=== PATIENT | male | born 1965 | race Caucasian/White ===

== ENCOUNTER 2024-04-24 05:26 | Observation (INO) ==
--- NOTE | 2024-04-18 09:26 | Anesthesiology Consultation ---
Date of Service April 18, 2024 Assessment & Plan (1) Encounter for pre-operative examination: - Check BSG DOS - Infectious disease screening: Per assessment on 04/18/24- No known recent infectious disease contacts or current infectious disease symptoms. - Semaglutide instructions: Patient informed by PAT to stop 7 days prior to surgery- voiced understanding. DOS 04/24/24. Advised last dose to be 04/15/24. Chart Review Chart Review: Acceptable Risk for Surgery and Patient seen in Pre Admission Testing Teaching & Discussion Pre-Anesthesia Teaching/Discussion Notes: Instructed NPO after midnight before surgery,except medications with 15 cc of water. Medication instructions pr ovided according to the PAT guidelines. History Surgery Operation Date: 04/24/24 10:35 Proposed Procedures p C4-C5, C5-C6 Cervical Artifical Disc Arthroplasty - Ross Lowry MD Height/Weight Height: 6 ft 2 in Weight: 136.9 kg Allergies Allergy/AdvReac Type Severity Reaction Status Date / Time No Known Allergies Allergy Unknown Verified 04/11/24 10:24 Medications Home Medications Medication Instructions Recorded Confirmed Last Taken diclofenac sodium 75 mg 75 mg PO BID PRN pain #30 tabs 02/10/24 04/11/24 Unknown tablet,delayed release atorvastatin 40 mg tablet 40 mg PO HS 04/11/24 04/11/24 Unknown baclofen 10 mg tablet 10 mg PO BID PRN muscle spasms 04/11/24 04/11/24 Unknown cholecalciferol (vitamin D3) 25 25 mcg PO BID 04/11/24 04/11/24 Unknown mcg (1,000 unit) tablet (Vitamin D3) insulin glargine 100 unit/mL (3 30 unit subcut HS 04/11/24 04/11/24 Unknown mL) subcutaneous pen (Lantus Solostar U-100 Insulin) lisinopril 2.5 mg tablet 2.5 mg PO HS 04/11/24 04/11/24 Unknown meloxicam 15 mg tablet 15 mg PO DAILY PRN Pain 04/11/24 04/11/24 Unknown milk thistle 500 mg capsule 1,000 mg PO BID 04/11/24 04/11/24 Unknown multivitamin 1 tab PO DAILY 04/11/24 04/11/24 Unknown pantoprazole 40 mg tablet,delayed 40 mg PO QAM 04/11/24 04/11/24 Unknown release semaglutide 2 mg/dose (8 mg/3 mL) 2 mg subcut WK 04/11/24 04/11/24 04/08/24 subcutaneous pen injector (Ozempic) venlafaxine 150 mg 150 mg PO BID 04/11/24 04/11/24 Unknown capsule,extended release 24 hr Past Medical History Medical History Cervical disc disorder at C4-C5 level with radiculopathy Cervical herniated disc Cervical radiculopathy chronic - left hand Chronic back pain Chronic neck pain Cirrhosis Follows with [facility] Gastro in [place] Depression controlled and stable Diabetes mellitus, type 2 IDDM Fatty liver non-alcoholic GERD (gastroesophageal reflux disease) History of COVID-19 2019: loss of taste and smell > resolved History of kidney stones Hx of colonic polyps "benign" Hyperlipidemia Hypertension Impingement of left shoulder Follows with [facility] Left shoulder pain Post concussion syndrome s/p fall 05/2023, Resiual Mild memory loss from the incident and occasional dizziness/headaches- at baseline Followed with neurology (Dr. [place] Garrido) Sleep apnea CPAP Tendonitis of left rotator cuff Follows with [facility] Exercise / Class Metabolic Activity II 4-5 Yardwork/Stairs/Walk up hill (one FS: No CP, no SOB) Past Family History Family History Other No family history of adverse response to anesthesia Past Surgical History Surgical History History of cholecystectomy History of colonoscopy Summer 2022 History of esophagogastroduodenoscopy (EGD) Summer 2022 History of lithotripsy Laser lithotripsy (several times) History of liver biopsy History of total knee replacement (2012) Left S/P epidural steroid injection Cervical epidural steroid/UOC - Dr Dillard (2023) Past Anesthesia History No Hx of Anesthesia Complications and No Family Hx of Anesthesia Complications History of PONV No Hx of PONV and No Hx of Motion Sickness Social History Smoking Status: Never smoker Do You Dip or Chew Tobacco: Yes (1 can/week (Advised on policy)) Hx Alcohol Use: Yes Alcohol type: beer alcohol intake frequency: a few times a week Hx Substance Use: No substance use type: does not use Review of Systems Patient denies chest pain, shortness of breath, dyspnea on exertion, fever, chills, cough, wheezing, palpitations. Physical Exam Vital Signs BP 151/75 P 72 TEMP 98.1 SP02 95%RA RESP 16 Physical Full cervical extension range of motion. Full TMJ range of motion. TMD 3 finger breaths (difficult to palpate) Mallampati Score III Dentition: missing molars, + cap Lungs: clear throughout to auscultation Cardiac: regular rate and rhythm, no murmurs noted, distant heart sounds Spine: normal Carotid arteries: negative bruit Extremities: no LE edema Short, thick neck Lab Results Anesthesia Preop Results Results Anesthesia Widget: WBC 7.34 K/ul (4.8-10.8) 04/18/24 Hgb 16.9 g/dl (14.0-18.0) 04/18/24 Hct 48.3 % (42.0-52.0) 04/18/24 Plt 206 K/uL (130-400) 04/18/24 Na 136 mmol/L (136-145) 04/18/24 K 4.4 mmol/L (3.5-5.1) 04/18/24 Cl 102 mmol/L (98-107) 04/18/24 CO2 28 mmol/L (21-32) 04/18/24 BUN 13 mg/dl (6-23) 04/18/24 Creat 0.93 mg/dl (0.6-1.4) 04/18/24 Glucose Level 242 mg/dl (70-99(Fasting)) H 04/18/24 PT 10.6 Seconds (9.0-12.0) 04/18/24 PTT 27 Seconds (21-31) 04/18/24 INR 1.0 (0.9-1.1) 04/18/24 HA1c 8.1 % (4.5-5.6) H 04/18/24 Blood Type O Positive 04/18/24 Antibody Screen NEGATIVE 04/18/24 Testing Laboratory Results Surgeon's office made aware of elevated A1C* 02/13/24 ALK PHOS 94 AST 34 ALT 56 Total bili 0.7 Electrocardiogram Date: 04/18/24 NSR at 72bpm. NS TWA. 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 Chest X-Ray Date: 04/18/24 FINDINGS: Lung volumes are normal. Lungs are clear. There is no pneumothorax or pleural effusion. Cardiac size is normal. Mediastinal contours are normal. There is no evidence for pulmonary edema. IMPRESSION: No acute cardiopulmonary findings. Other Testing US Abdomen Date: 12/29/23 Overall appearance of the liver suggests cirrhosis, not significantly changed however the liver is at the upper limits of normal in size.
[2024-04-24] MEDS: SODIUM CHLORIDE 0.9% 1,000 ML IV SCH (06:00)
[2024-04-24] MEDS: GABAPENTIN 600 MG DOSE PO SCH (06:05)
[2024-04-24] MEDS: ACETAMINOPHEN 500 MG TAB PO SCH (06:05)
[2024-04-24] MEDS: LR 15ML/HR IV SCH (06:06)
[2024-04-24] MEDS: LR 60ML/HR IV SCH (06:06)
[2024-04-24] MEDS ORDERED: GLYCOPYRROLATE 0.2 MG/ML VIAL ONE (06:40)
[2024-04-24] MEDS ORDERED: MIDAZOLAM HCL 1 MG/ML 2ML VIAL ONE (06:40)
[2024-04-24] MEDS ORDERED: PROPOFOL IV EMULSION 10 MG/ML 20 ML VIAL IV ONE (06:40)
[2024-04-24] MEDS ORDERED: ROCURONIUM BROMIDE 10 MG/ML 5 ML VIAL IV ONE ×3 (06:40→12:07)
[2024-04-24] MEDS ORDERED: fentaNYL citrate PF 100 MCG/2 ML VIAL ONE ×5 (06:40→11:59)
[2024-04-24] MEDS ORDERED: ONDANSETRON INJ 2 MG/ML 2 ML VIAL ONE (06:40)
[2024-04-24] MEDS ORDERED: LIDOCAINE 2% 2 ML VIAL/AMP(20MG/ML) INFIL ONE (06:40)
[2024-04-24] MEDS ORDERED: DEXAMETHASONE SOD INJ 4 MG/ML VIAL ONE (06:40)
[2024-04-24] MEDS ORDERED: SUGAMMADEX SODIUM 200 MG/2 ML VIAL IV ONE (06:44)
[2024-04-24] MEDS ORDERED: KETAMINE HCL 10MG/ML SYR ONE (06:46)
[2024-04-24] MEDS ORDERED: DROPERIDOL 5 MG/2 ML VIAL IV PRN (07:09)
[2024-04-24] MEDS ORDERED: PROMETHAZINE HCL 6.25 MG in SODIUM CHLORIDE 0.9% 50 ML IV PRN (07:09)
[2024-04-24] MEDS ORDERED: ePHEDrine sulfate 50 MG/ML AMP IV PRN (07:09)
[2024-04-24] MEDS ORDERED: ATROPINE SULFATE 0.1 MG/ML 10ML SYR IV PRN (07:09)
--- NOTE | 2024-04-24 07:16 | History & Physical Bridge Note ---
Date of Service April 24, 2024 History & Physical Bridge Note I have examined the patient, reviewed the History & Physical and in the interval since the performance of the History & Physical I have noted the following changes of clinical significance: no changes noted
[2024-04-24] MEDS: ceFAZolin 3000MG 3,000 MG/72.5 ML BAG IV SCH (08:12)
[2024-04-24] MEDS ORDERED: LABETALOL HCL IV 5 MG/ML 20ML IV ONE ×2 (12:10)
[2024-04-24] MEDS: ceFAZolin 2000MG 2,000 MG/15 ML SYR IV ONE (12:12)
[2024-04-24] MEDS ORDERED: ceFAZolin 330 MG/ML 1 GM VIAL ONE (12:23)
[2024-04-24] MEDS: FLOSEAL HEMOSTATIC MATRIX 10ML TOP ONE (13:13)
[2024-04-24] MEDS: VANCOMYCIN HCL 1000MG/20ML VIAL ONE (13:13)
[2024-04-24] MEDS: GELATIN SPONGE 12-7MM ONE (13:13)
[2024-04-24] MEDS: THROMBIN 5000 UNITS KIT ONE (13:13)
[2024-04-24] MEDS ORDERED: HYDROmorphone INJ 2 MG/ML SYR/VIAL ONE (13:18)
[2024-04-24] MEDS ORDERED: METOCLOPRAMIDE HCL INJ 5 MG/ML 2 ML VIAL IV PRN (13:36)
[2024-04-24] MEDS ORDERED: SOD PHOSPHATE/SOD BIPHOSPHATE ENEMA 132 ML BTL PR PRN (13:36)
[2024-04-24] MEDS ORDERED: hydrOXYzine HCl 25 MG TAB PO PRN (13:36)
[2024-04-24] MEDS ORDERED: PROMETHAZINE 12.5 MG/50.5 ML BAG IV PRN (13:36)
[2024-04-24] MEDS ORDERED: ONDANSETRON 4 MG OD TAB PO PRN (13:36)
[2024-04-24] MEDS ORDERED: ACETAMINOPHEN 500 MG TAB PO PRN (13:36)
[2024-04-24] MEDS ORDERED: FAMOTIDINE 20 MG TAB PO PRN (13:36)
[2024-04-24] MEDS ORDERED: ALUMINUM/MAGNESIUM SUSP 30 ML UDC PO PRN (13:36)
[2024-04-24] MEDS ORDERED: ONDANSETRON INJ 2 MG/ML 2 ML VIAL IV PRN (13:36)
[2024-04-24] MEDS ORDERED: MAGNESIUM HYDROXIDE SUSP 30 ML UDC PO PRN (13:36)
[2024-04-24] MEDS ORDERED: RACEPINEPHRINE 2.25% NEBU SOLN 0.5 ML VIAL INH PRN (13:36)
[2024-04-24] MEDS ORDERED: bisacodyL 10 MG SUPP PR PRN (13:36)
[2024-04-24] MEDS ORDERED: NALOXONE HCL 0.4 MG/1 ML VIAL/CARP IV PRN (13:36)
[2024-04-24] MEDS ORDERED: DO NOT ADMINISTER PNEUMOCOCCAL VACCINE PRN (13:36)
[2024-04-24] MEDS ORDERED: DO NOT ADMINISTER FLU VACCINE PRN (13:36)
[2024-04-24] MEDS ORDERED: LORazepam 2 MG/1 ML VIAL IV PRN (13:36)
[2024-04-24] MEDS ORDERED: diphenhydrAMINE Capsule 25 MG CAP PO PRN (13:36)
[2024-04-24] MEDS ORDERED: LORazepam 0.5 MG TAB PO PRN (13:36)
[2024-04-24] MEDS ORDERED: dexAMETHasone 8 MG in SYRINGE 0 ML IV PRN (13:36)
[2024-04-24] MEDS ORDERED: ACETAMINOPHEN 1,000 MG/100 ML VIAL IV PRN (13:36)
--- NOTE | 2024-04-24 13:36 | Post Operative Brief Note ---
PG Immediate Post Op with CF Date of Surgery April 24, 2024 Pre & Post Diagnosis Operation Date: 04/24/24 07:15 Pre-Op Diagnosis: Cervical Disc Disorder at C4-C5 with Radiculopathy, Cervical Disc Disorder at C5-C6 with Radiculopathy, Cervical Radiculopathy, Neck pain left side. Post-Op Diagnosis: Cervical Disc Disorder at C4-C5 with Radiculopathy, Cervical Disc Disorder at C5-C6 with Radiculopathy, Cervical Radiculopathy, Neck pain left side. I identified the patient and participated in the time-out.: Yes Procedure Operation Date: 04/24/24 07:15 Actual Procedures p C4-C5, C5-C6 Cervical Artifical Disc Arthroplasty - Ross Lowry MD Surgeon Ross Lowry MD Bead Forming Machine Operator none Estimated Blood Loss 20 Findings Consistent with Post-Op Diagnosis Specimens Specimen Description: no specimen per surgeon Drains Lundy Catheter
[2024-04-24] MEDS ORDERED: PHARMACY GLYCEMIC MGMT CONSULT PRN (13:42)
--- NOTE | 2024-04-24 14:12 | Fluoroscopy Report ---
FL cervical 2-3V CLINICAL HISTORY: C4-C5, C5-C6 CERVICAL ARTIFICAL DISC TECHNIQUE: 12 views were obtained with the C-arm in the OR with the above procedure. Total fluoroscop y time was 136.0 seconds. Radiation dose was 64.59 mGy. Comparison: None available at the time of this dictation. FINDINGS/IMPRESSION: Intraoperative images were obtained of C4-C6 discectomy and prosthesis placement . Please correlate with intraoperative fluoroscopy and operative report. ACT 112: Negative or not required by law. Electronically signed by: Eldon Escalante M.D. 04/24/2024 2:11 PM
[2024-04-24] MEDS: HYDROmorphone INJ 2 MG/ML SYR/VIAL IV PRN (14:13)
--- NOTE | 2024-04-24 14:17 | Pharmacy Report ---
Pharmacy Glycemic Short Note 2 - Date of Service April 24, 2024 - Glycemic Short BSG Results (Last 24 hours): 04/24/24 04/24/24 05:52 13:43 POC Glucose 176 H 248 H OUTPATIENT ANTIDIABETIC REGIMEN: * Lantus 30 units HS * A1c 8.1% 04/18/24 ASSESSMENT: * Patient admitted POD #0, received 8 mg IV dexamethasone * Post op BSG elevated at 248 mg/dL- will begin parameters similar to weight based stress of 3 (adjusted body weight) * Schedule basal to be given with dinner, then HS ongoing the following night. will utilize ~.26 units/kg TBW (this is similar to adjusted body weight stress of 2 dosing; ~17% increase from home dose * Overnight checks PLAN FOR INPATIENT GLYCEMIC CONTROL: * Hold outpatient oral diabetes medications * Basal insulin * Lantus 35 units SQ x1, reassess dosing tomorrow * Bolus insulin * NovoLog per scale ACHS or Q6hrs while NPO * Goal Range: Low 110 mg/dL - High 140 mg/dL * Correction Factor: 15 mg/dL/unit * Nutritional / Prandial insulin per carb ratio of 1 unit per 6 grams CHO consumed
--- NOTE | 2024-04-24 15:14 | Anesthesiology Progress Note ---
Date of Service April 24, 2024 Anesthesia Post Procedure Vital Signs Vital Signs: Temp Pulse Pulse Resp BP Pulse Ox O2 Del Method 04/24/24 15:01 36.7 C 90 18 101/65 90 Nasal Cannula 04/24/24 14:45 37.0 C 86 12 108/60 94 Nasal Cannula 04/24/24 14:35 89 12 126/60 93 Nasal Cannula 04/24/24 14:25 87 10 L 127/69 93 Nasal Cannula 04/24/24 14:15 94 H 18 139/74 92 Room Air 04/24/24 14:05 88 18 126/70 95 Oxymask 04/24/24 13:55 89 18 117/71 96 Oxymask 04/24/24 13:45 85 14 126/68 97 Oxymask 04/24/24 13:39 36.1 C L 88 14 124/65 99 Oxymask 04/24/24 05:56 36.7 C 75 20 154/103 H 97 Room Air O2 Flow Rate 04/24/24 15:01 2 04/24/24 14:45 2 04/24/24 14:35 2 04/24/24 14:25 2 04/24/24 14:15 04/24/24 14:05 10 04/24/24 13:55 10 04/24/24 13:45 10 04/24/24 13:39 10 04/24/24 05:56 Pain Intensity Left Neck: Pain Intensity: 3 Transfer of Care Handoff Completed per policy Notes Mental Status: alert / awake / arousable and participated in evaluation Nausea / Vomiting: adequately controlled Pain: adequately controlled Airway Patency, RR, SpO2: stable & adequate BP & HR: stable & adequate Hydration State: stable & adequate Anesthetic Complications: no major complications apparent and Pt Satisfied with anesthetic care
[2024-04-24] MEDS: INSULIN ASPART PER UNIT CHARGE SC ONE (15:39)
--- NOTE | 2024-04-24 15:40 | Hospitalist Consultation ---
Date of Consultation April 24, 2024 Assessment & Plan (1) Cervical disc disorder at C4-C5 level with radiculopathy: S/p C4-C5, C5-C6 cervical artificial disc arthroplasty - Pain management, VTE PPx, and bowel regimen per surgical team - Pre-op H&H stable, renal function stable, EKG NSR - CBC + CMP am (2) Cervical disc disorder at C5-C6 level with radiculopathy: As above, see #1 (3) Diabetes mellitus, type 2: H/o DMT2 - At home regimen Ozempic weekly (HOLD while inpatient), Lantus 30U nightly - Most recent A1C (04/2024) @ 8.1% - SSI with target BSG range 110-140mg/dL, CF 25, carb ratio 10 - T2DM diet - BSG ACHS - Adjust regimen as needed - Pharm glycemic management consult placed (4) Tobacco chew use: Tobacco use, > 50 years - Recommended cessation - Gum + patch ordered Plan HTN- lisinopril 2.5 mg HLD- atorvastatin 40 mg Depression- stable; venlafaxine GERD- pantoprazole 40mg Cirrhosis/VIVAR- follows with [facility] gastro in [place]; Milk thistle 1000 mg twice daily Sleep apnea- CPAP brought from home; use nightly Dispo: Admit Diet: T2DM VTE Prophylaxis: Per surgical team Code: Full Supervising Physician Co-Signing Physician Notes Patient seen and examined, chart reviewed, case discussed with Juanis Pate PA-C and I agree with the assessment and plan as above except as otherwise noted above. All labs and images reviewed Seen at the bedside on evening reassessment. No questions or concerns. Walking to the bathroom independently. Pain adequately controlled. Breathing comfortably on RA. Agree w/ management of chronic medical issues as noted above History of Present Illness Reason for Consultation: Medical management Requesting Physician: Ross Lowry MD Attending Physician: Ross Lowry MD History of Present Illness 58-year-old male being evaluated postoperatively; s/p cervical artificial disc arthroplasty. PMHx HTN, HLD, sleep apnea (CPAP), depression, T2DM, GERD, cirrhosis, and multiple musculoskeletal conditions. Patient resting in bed at time of visit. States overall his pain is well-controlled, he is just having what he describes as muscle soreness in his posterior neck. Additionally complaining of a slightly sore throat, but states that the pain resolves temporarily when swallowing water. Denying chest pain, shortness of breath, palpitations, abdominal pain, N/V, numbness/tingling, or headache. Please see Dr. Motta's attestation for adjustments/additions to treatment plan. Allergies Allergy/AdvReac Type Severity Reaction Status Date / Time No Known Allergies Allergy Unknown Verified 04/24/24 05:59 Home Medications Medication Instructions Recorded Confirmed Type diclofenac sodium 75 mg 75 mg PO BID PRN pain #30 tabs 02/10/24 04/24/24 Rx tablet,delayed release atorvastatin 40 mg tablet 40 mg PO HS 04/11/24 04/24/24 History baclofen 10 mg tablet 10 mg PO BID PRN muscle spasms 04/11/24 04/24/24 History cholecalciferol (vitamin D3) 25 25 mcg PO BID 04/11/24 04/24/24 History mcg (1,000 unit) tablet (Vitamin D3) insulin glargine 100 unit/mL (3 30 unit subcut HS 04/11/24 04/24/24 History mL) subcutaneous pen (Lantus Solostar U-100 Insulin) lisinopril 2.5 mg tablet 2.5 mg PO HS 04/11/24 04/24/24 History milk thistle 500 mg capsule 1,000 mg PO BID 04/11/24 04/24/24 History multivitamin 1 tab PO DAILY 04/11/24 04/24/24 History pantoprazole 40 mg tablet,delayed 40 mg PO QAM 04/11/24 04/24/24 History release semaglutide 2 mg/dose (8 mg/3 mL) 2 mg subcut WK 04/11/24 04/24/24 History subcutaneous pen injector (Ozempic) venlafaxine 150 mg 300 mg PO DAILY 04/11/24 04/24/24 History capsule,extended release 24 hr oxycodone-acetaminophen 5 mg-325 1 tab PO Q6H PRN Pain #18 tabs 04/25/24 Rx mg tablet (Percocet) Patient History Medical History History of COVID-2019: loss of taste and smell > resolved Tendonitis of left rotator cuff Follows with [facility] Impingement of left shoulder Follows with [facility] Post concussion syndrome s/p fall 05/2023, Resiual Mild memory loss from the incident and occasional dizziness/headaches- at baseline Followed with neurology (Dr. [place] Garrido) Cervical herniated disc Left shoulder pain Chronic neck pain Chronic back pain History of kidney stones Hx of colonic polyps "benign" Fatty liver non-alcoholic Cirrhosis Follows with [facility] Gastro in [place] GERD (gastroesophageal reflux disease) Diabetes mellitus, type 2 IDDM Depression controlled and stable Cervical radiculopathy chronic - left hand Sleep apnea CPAP Hyperlipidemia Hypertension Surgical History History of total knee replacement (2012) Left S/P epidural steroid injection Cervical epidural steroid/UOC - Dr Dillard (2023) History of lithotripsy Laser lithotripsy (several times) History of colonoscopy Summer 2022 History of liver biopsy History of cholecystectomy History of esophagogastroduodenoscopy (EGD) Summer 2022 Family History Other No family history of adverse response to anesthesia Social History Smoking Status: Never smoker Tobacco Type: Smokeless Tobacco (Dip or Chew) Second Hand Exposure: No; Do You Dip or Chew Tobacco: Yes (1 can/week (Advised on policy)); Hx Alcohol Use: Yes Alcohol type: beer Hx Substance Use: No Preferred Language: Malay Communication Ability: Effective Patient Service Coordinator Required: No Beliefs That Will Affect Care: None Current Living Situation: Spouse Feels Safe at Home: Yes Assistive Devices: CPAP Review of Systems Review of Systems: All systems reviewed & are unremarkable except as noted in Subjective Physical Exam Physical Exam: General: No acute distress Skin: Warm and dry, without rashes or lesions Head: Normocephalic, atraumatic Eyes: PERRL, conjunctivae clear, sclera non-icteric ENT: External ear and ear canal without swelling; nose atraumatic; good dentition, oropharynx slightly dry Neck: Supple, no LAD Cardio: RRR, no M/G/R, S1 and S2 normal Resp: No respiratory distress, Lungs CTA in all lobes bilaterally, no wheezes, rales, or rhonchi; On 2L O2 via NC (none at baseline) Abdomen: Soft, symmetric, nontender; no distention; No masses or hepatosplenomegaly; Bowel sounds normoactive MSK: No deformities, full ROM throughout; pulses palpable and equal; no edema. Neuro: Awake, alert; Sensation intact bilaterally; CN intact Psych: Appropriate mood and affect; good judgement and insight. 3 family members present in room at time of visit. Results & Data Results & Data Vital Signs (Past 12 Hours) Vital Signs Temp Pulse Pulse Resp BP Pulse Ox O2 Del Method 04/24/24 15:23 Nasal Cannula 04/24/24 15:01 36.7 C 90 18 101/65 90 Nasal Cannula 04/24/24 14:45 37.0 C 86 12 108/60 94 Nasal Cannula 04/24/24 14:35 89 12 126/60 93 Nasal Cannula 04/24/24 14:25 87 10 L 127/69 93 Nasal Cannula 04/24/24 14:15 94 H 18 139/74 92 Room Air 04/24/24 14:05 88 18 126/70 95 Oxymask 04/24/24 13:55 89 18 117/71 96 Oxymask 04/24/24 13:45 85 14 126/68 97 Oxymask 04/24/24 13:39 36.1 C L 88 14 124/65 99 Oxymask 04/24/24 05:56 36.7 C 75 20 154/103 H 97 Room Air O2 Flow Rate 04/24/24 15:23 2 04/24/24 15:01 2 04/24/24 14:45 2 04/24/24 14:35 2 04/24/24 14:25 2 04/24/24 14:15 04/24/24 14:05 10 04/24/24 13:55 10 04/24/24 13:45 10 04/24/24 13:39 10 04/24/24 05:56 PG Care Time/CCT Total # of Minutes Spent Total Time Spent with Patient: Total time spent is greater than 50% in coordination of care (as documented) at patient's floor/unit and/or counseling patient: Coding Level of Care Code 67364 IN/OBS CONSULT LVL 3,45M Diagnoses Cervical disc disorder at C4-C5 level with radiculopathy M50.121 Cervical disc disorder at C5-C6 level with radiculopathy M50.122 Diabetes mellitus, type 2 E11.9 Tobacco chew use Z72.0 Time Spent (min) 40
[2024-04-24] MEDS ORDERED: NICOTINE POLACRILEX 2 MG GUM MT PRN (16:14)
[2024-04-24] MEDS: NICOTINE 21 MG/24 HR TDSY TD SCH (16:41)
[2024-04-24] MEDS: INSULIN ASPART PER UNIT CHARGE SC SCH (16:56)
[2024-04-24] MEDS: LANTUS PER UNIT CHARGE SC SCH (16:56)
[2024-04-24] MEDS: HYDROmorphone INJ 0.5 MG/0.5 ML SYR IV PRN (17:46)
[2024-04-24] MEDS: ceFAZolin 2000MG 2,000 MG/15 ML SYR IV SCH (20:27)
[2024-04-24] MEDS: lisinopril 2.5 MG TAB PO SCH (20:27)
[2024-04-24] MEDS: DOCUSATE SODIUM/SENNA 50/8.6MG TAB PO SCH (20:27)
[2024-04-24] MEDS ORDERED: NON-FORMULARY MEDICATION (Insulin Glargine [Lantus Solostar U-100 Insulin] 100 unit/mL (3 SQ SCH (21:00)
[2024-04-24] MEDS: oxyCODONE/ACETAMINOPHEN 5mg/325mg TAB PO PRN (22:02)
[2024-04-25] MEDS: POLYETHYLENE (MIRALAX) 17 GM PACK PO SCH (06:25)
[2024-04-25 07:33] VITALS: RESP 16
[2024-04-25] MEDS: VENLAFAXINE HCL XR 150 MG CAPXR PO SCH (07:38)
[2024-04-25 07:51] LABS: Basophils # (auto) 0.02 K/uL (0.00-0.20); Basophils % (auto) 0.1 %; Eosinophils # (auto) 0.02 K/uL (0.00-0.50); Eosinophils % (auto) 0.1 %; Hematocrit (blood only) 47.1 % (42.0-52.0); Hemoglobin 16.2 g/dl (14.0-18.0); Immature Granulocytes # (auto) 0.05 K/uL (0.01-0.20); Immature Granulocytes % (auto) 0.3 %; Lymphocytes # (auto) 2.52 K/uL (1.20-3.40); Lymphocytes % (auto) 16.1 %; Mean Corpuscular Hemoglobin 31.3 pg (25.0-34.0); Mean Corpuscular Hgb Conc 34.4 g/dL (32.0-36.0); Mean Corpuscular Volume 90.9 fL (80.0-100.0); Mean Platelet Volume 10.3 fL (9.4-12.4); Monocytes # (auto) 1.29 K/uL (0.11-0.59); Monocytes % (auto) 8.3 %; Neutrophils # (auto) 11.72 K/uL (1.40-6.50); Neutrophils % (auto) 75.1 %; Platelet Count 205 K/uL (130-400); RDW Coefficient of Variation 11.9 % (11.5-14.5); RDW Standard Deviation 39.6 fL (36.4-46.3); Red Blood Count 5.18 M/uL (4.70-6.10); White Blood Count 15.62 K/ul (4.8-10.8)
[2024-04-25 07:54] VITALS: BP 130/68; PULSE 68; TEMP 97.7; O2SAT 95
--- NOTE | 2024-04-25 08:02 | Hospitalist Progress Note ---
Date of Service April 25, 2024 Assessment & Plan (1) Cervical disc disorder at C4-C5 level with radiculopathy: Plan: s/p C4-C5, C5-C6 Cervical Artifical Disc Arthroplasty with Dr Lowry 04/24 EBL 20cc - Pain management, VTE PPx, and bowel regimen per surgical team - Pre-op H&H stable, renal function stable, EKG NSR - CBC + CMP am 04/25 WBC elevation suspected 2nd to surgery/stress of surgery. Has remained afebrile. 95% on RA. Hgb stable 16.2 Chemistries stable, stable renal function. Lisinopril continued. BP 130/68 Pain control w/ Hydromorphone/Oxycodone being utilized, has utilized 1 dose Dilaudid this morning. Dispo per primary service -- planning for dc today Please call with any questions/concerns. (2) Cervical disc disorder at C5-C6 level with radiculopathy: Plan: As above, see #1 (3) Diabetes mellitus, type 2: Plan: H/o DMT2 - At home regimen Ozempic weekly (HOLD while inpatient), Lantus 30U nightly - Most recent A1C (04/2024) @ 8.1% - SSI with target BSG range 110-140mg/dL, CF 25, carb ratio 10 - T2DM diet - BSG ACHS - Adjust regimen as needed - Pharm glycemic management consult placed and managing while inpatient (4) Tobacco chew use: Plan: Tobacco use, > 50 years - Recommended cessation - Gum + patch ordered Cessation in f/u recommended Plan HTN- lisinopril 2.5 mg, BP stable HLD- atorvastatin 40 mg Depression- stable; venlafaxine GERD- pantoprazole 40mg Cirrhosis/VIVAR- follows with [facility] gastro in [place]; Milk thistle 1000 mg twice daily Sleep apnea- CPAP brought from home; use nightly Dispo: planning for dc today when family for ride Hospitalist service will sign off. Please call with questions/concerns. Admission and Anticipated Discharge Date Admission Date: April 24, 2024 Supervising Physician Co-Signing Physician Notes The patient was not seen by me. The chart was reviewed. Case discussed with JASON Samaniego. Agree with assessment and plan Subjective EVal this morning, ambulating the room. Tolerating diet. Arm symptoms improving, some numbness/tingling but improving. No CP/SOB, no abdominal pain, fever/chills. No lightheaded/dizziness reported. No stridor/significant swelling. Planning for dc when family here at 11. Questions/concerns addressed at this time. Physical Exam 2 Physical Exam: General: No acute distress, ambulating in the room, drinking coffee HEENT: head atraumatic, normocephalic, mmm, trachea midline Neck: no stridor, no wheezing, dressing c/d/i, minimal swelling, no drainage/redness Cardio: RRR, no M/G/R, S1 and S2 normal Resp: No respiratory distress, Lungs CTA in all lobes bilaterally, no wheezes, rales, or rhonchi, on room air Abdomen: Soft, symmetric, nontender; no distention; No masses or hepatosplenomegaly; Bowel sounds normoactive MSK: No deformities, full ROM throughout; pulses palpable and equal; no edema. Neuro: Awake, alert; Sensation intact bilaterally; CN intact Psych: Appropriate mood and affect; good judgement and insight. Results & Data Results & Data Vital Signs (Past 12 Hours) Vital Signs Temp Pulse Pulse Resp BP BP Pulse Ox 04/25/24 07:48 36.5 C 68 16 130/68 95 04/25/24 07:15 70 16 93 04/25/24 06:58 04/25/24 06:26 36.4 C L 70 18 124/78 97 04/25/24 04:39 70 18 95 04/25/24 04:30 36.6 C 74 18 120/77 96 04/25/24 02:26 36.5 C 76 16 126/78 96 04/25/24 00:30 36.5 C 76 16 121/75 96 04/24/24 23:22 76 18 95 04/24/24 22:27 36.5 C 79 16 135/78 96 04/24/24 21:00 04/24/24 20:17 36.5 C 80 18 170/78 H 96 O2 Del Method O2 Flow Rate 04/25/24 07:48 Room Air 04/25/24 07:15 Room Air 04/25/24 06:58 Room Air, CPAP 04/25/24 06:26 Nasal Cannula 2 04/25/24 04:39 Nasal Cannula 2 04/25/24 04:30 Nasal Cannula 2 04/25/24 02:26 Nasal Cannula 04/25/24 00:30 Nasal Cannula 2 04/24/24 23:22 Nasal Cannula 2 04/24/24 22:27 Nasal Cannula 2 04/24/24 21:00 Nasal Cannula 2 04/24/24 20:17 Room Air Laboratory Results 04/25/24 07:08 04/25/24 07:08 PG Care Time/CCT Total # of Minutes Spent Total Time Spent with Patient: Total time spent is greater than 50% in coordination of care (as documented) at patient's floor/unit and/or counseling patient: Coding Level of Care Code 68338 SUB INP/OBS CARE 06/09MIN Diagnoses Cervical disc disorder at C4-C5 level with radiculopathy M50.121 Cervical disc disorder at C5-C6 level with radiculopathy M50.122 Diabetes mellitus, type 2 E11.9 Tobacco chew use Z72.0
--- NOTE | 2024-04-25 08:14 | Orthopedic Progress Note ---
Date of Service April 25, 2024 Subjective Patient seen and examined, he notes that his preoperative arm symptoms are resolved, he has some neck ache, and some limited numbness and tingling in the radial 3 digits which is improving. No issues with swallowing Dressing unremarkable, no focal motor weakness. Impression/plan: Postop day 1 from anterior cervical decompression and artificial disc placement C4-5 C5-6 with improvement of preoperative symptoms. Discharge home today and follow-up in 2 to 3 weeks. Review of Systems All systems reviewed & are unremarkable except as noted in HPI & below. Physical Exam . Results & Data Results & Data Laboratory Results . Diagnostic Findings . PG Care Time/CCT Total # of Minutes Spent Total Time Spent with Patient: Total time spent is greater than 50% in coordination of care (as documented) at patient's floor/unit and/or counseling patient: Coding Level of Care Code 52478 Post Operative Follow-Up
[2024-04-25 08:37] LABS: Albumin Globulin Ratio 1.3 (0.9-2); Albumin Level 3.8 gm/dl (3.4-5.0); BUN Creatinine Ratio 17.9 (10-20); Creatinine Clr Calc Pharmacy 151.1 ml/min; Potassium 4.1 mmol/L (3.5-5.1); Total Protein 6.8 gm/dl (6.0-8.3)
--- NOTE | 2024-04-27 08:18 | Discharge Summary ---
Date of Service April 27, 2024 Admission HPI (Per Admitting) cervical radiclopathy Principal Diagnosis Same as "Discharge Diagnosis" noted below under Discharge Instructions. Discharge Exam . Discharge Data Consultations 04/24/24 13:36 Consult Hospitalist Routine Procedures Performed Operation Date: 04/24/24 07:15 Actual Procedures p C4-C5, C5-C6 Cervical Artifical Disc Arthroplasty - Ross Lowry MD Ordered Studies 04/24/24 07:15 FL cervical 2-3V Routine Hospital Course (1) Cervical disc disorder at C4-C5 level with radiculopathy: surgery (2) Cervical disc disorder at C5-C6 level with radiculopathy: PG Care Time/CCT Total # of Minutes Spent Total Time Spent with Patient: Total time spent is greater than 50% in coordination of care (as documented) at patient's floor/unit and/or counseling patient: Discharge Plan Discharge Items Patient Disposition: Home - Self-Care Reason For Visit: Cervical Disc Disorder at C4-C5 with Radiculopathy Discharge Diagnosis: cervical radiculopathy Activity: As commented below Lifting: No more than 10 pounds Bathing: May shower/bathe in 3 days Exercise/Sports: Wait until after follow-up appointment Weightbearing: Full weightbearing Non-emergency contact: Surgeon Call non-emergency contact if: your pain is worsening Follow-up/Referrals: Ross Lowry MD [Surgeon] - 05/18/24 3:10 pm PCP,NO [Physician] - Diet: Regular Addtl Attending Provider Instructions: May shower on 3rd day after surgery. You can wash the incision and surgical site with soap and water briefly and then blot dry with a clean towel/cloth. Cover with a new, sterile dry dressing. If unable to change your dressing, then leave hospital dressing intact and cover the area for showering. Do NOT soak incision. No strenuous activity, lifting, or exercise until further instructed. Use the Percocet prescription for pain relief, and if that prescription has run out, then switch to [id number] Tylenol as needed. Follow-up 2 to 3 weeks after surgery. Pending Studies at Discharge: No Stand-Alone Forms: [employer], Smoking Cessation Medications and DC Order Prescriptions: New oxycodone-acetaminophen [Percocet] 5-325 mg Tablet 1 tab PO Q6H PRN (Reason: Pain) Qty: 18 0RF Continued baclofen 10 mg Tablet 10 mg PO BID PRN (Reason: muscle spasms) multivitamin Tablet 1 tab PO DAILY atorvastatin 40 mg Tablet 40 mg PO HS milk thistle 500 mg Capsule 1,000 mg PO BID Rx Instructions: give with meal/snack venlafaxine 150 mg Capsule,Extended Release 24hr 300 mg PO DAILY pantoprazole 40 mg Tablet,Delayed Release (Dr/Ec) 40 mg PO QAM lisinopril 2.5 mg Tablet 2.5 mg PO HS cholecalciferol (vitamin D3) [Vitamin D3] 25 mcg (1,000 unit) Tablet 25 mcg PO BID insulin glargine [Lantus Solostar U-100 Insulin] 100 unit/mL (3 mL) Insulin Pen 30 unit SUBCUT HS Ozempic 2 mg/dose (8 mg/3 mL) Pen Injector 2 mg SUBCUT WK Held diclofenac sodium 75 mg tablet,delayed release (DR/EC) 75 mg PO BID PRN (Reason: pain) Qty: 30 1RF Hold Instructions: Resume on 04/27/24. September restart 2 days after discharge Rx Instructions: With meals Discontinued meloxicam 15 mg Tablet 15 mg PO DAILY PRN (Reason: Pain) Discharge Orders: Discharge Order (Routine); Ordered 04/25/24 Ordered By: Gab Mason/Other Patient Handouts: During Cervical Disk Surgery Admission Data Admit Date/Time: 04/24/24 13:36 Attending Provider: Ross Lowry Admit Provider: Ross Lowry Primary Care Provider: Lyric Parker Other Providers: Segundo Wilkins; Kylah Lopez; Colby Britton; Pepito Valle; Juanito Berg; Gab Jackman; Ca Escalante; Annamaria Cano; Isatu Yuan; Cathryn Hager; Caleb Samuels; Mirna Gleason; Juan Manuel Olvera; Colby Yin; Rogelio Matias; Ras Armas; Lynsey Spence; Anna Sharma; Anna Henderson; Crystal Marquis; Geri Elizalde; Daryl Pate; Hola Gonzalez; Naren Locke; Savage Motta; Symone Smart.; Charu Vieyra; Dilma Stallworth; Levi Emerson; Forrest Kelly; Pepito Fernando; Juanito Lockett; Adrianna Whyte; Yamile Cee; Tosin Giles; Ritchie Lynn; David Harman; Delvis Hernandez; Ricky Cannon; Thelma Stallings; Niall Bingham; Anna Jean Other Interventions: Discharge Summary Assessment (RN) Last Done: 04/25/24 09:44
--- NOTE | 2024-04-27 08:29 | Operative Report ---
PG Post Operative Report Pre & Post Diagnosis Operation Date: 04/24/24 07:15 Pre-Op Diagnosis: Cervical Disc Disorder at C4-C5 with Radiculopathy, Cervical Disc Disorder at C5-C6 with Radiculopathy, Cervical Radiculopathy, Neck pain left side. Post-Op Diagnosis: Cervical Disc Disorder at C4-C5 with Radiculopathy, Cervical Disc Disorder at C5-C6 with Radiculopathy, Cervical Radiculopathy, Neck pain left side. 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 C4-5 artificial disc replacement, Mobi-C [id number]. ([id number]) 2. C5-6 artificial disc replacement, Mobi-C [id number]. ([id number]) Patient was taken the operating room and after adequate anesthesia was positioned on the OSI flat top table in the supine position. A preprep was performed followed by then positioning the patient and bringing in fluoroscopy where I marked for the location of the incision followed by prep and drape. Procedure was started with a left-sided approach standard fashion, over the C4-5 and C5-6 area with careful dissection down in the standard fashion to the anterior aspect of the cervical spine. Radiographically confirmed the location followed by then mobilizing the soft tissues in this region. Distractor pins were then inserted under fluoroscopic control at C5-C6 followed by then setting retractors. Operative microscope was brought in and began the procedure with the anterior annulotomy. This was followed by then mobilizing the disc material from the disc space including the cartilage from the endplates. This process continued until a thorough discectomy has been performed, to the posterior aspect. The posterior spondylosis was then removed with a combination of high- speed bur followed by then curettes and Kerrison rongeurs with removing the spondylosis, the posterior annulus and posterior longitudinal ligament out to the uncinates on both sides with additional decompression. Once this was completed, trials were then obtained and inserted, selecting the size as listed. This device was obtained and tapped into position with fluroscopic control with excellent position on AP and lateral views. The distractor pin was removed and bone wax was applied to the insertion site then placed at C4 with fluoroscopy. Retractors were then reinserted for the C4-5 level followed by anterior anulotomy with mobilizing the disc material from the disc space including the cartilage from the endplates. This process continued until a thorough discectomy has been performed, to the posterior aspect. The posterior spondylosis was then removed with a combination of high-speed bur followed by then curettes and Kerrison rongeurs with removing the spondylosis, the posterior annulus and posterior longitudinal ligament out to the uncinates on both sides with additional decompression. Trials were then obtained and inserted, selecting the size as listed. This device was obtained and tapped into position with fluroscopic control with excellent position on AP and lateral views. The distractor pin was removed and bone wax was applied to the insertion sites The surgical site was then inspected no issues were noted, vancomycin powder was placed. Operative site was closed with 3-0 Vicryl sutures including a subcuticular followed by benzoin and Steri-Strips. Sterile dressing was applied, the patient was taken recovery room satisfactory condition. This procedure was at least 50% longer in length secondary due to the patient's body habitus and anatomical features and should be coded appropriately with a 22 modifier for both levels of surgery. I attest to the content of the Intraoperative Record and any orders documented therein. Any exceptions are noted below.
== END 2024-04-25 11:08 | disposition home or self-care (01) ==
LOC: 3E 05:26 → ASU 05:26